=== PATIENT | male | born 1945 | race Caucasian/White ===

== ENCOUNTER 2018-11-11 02:30 | Inpatient (IN) | payer OTHER, MEDICARE ==
--- NOTE | 2018-11-11 02:35 | PDOC ---
Attending Attestation - Resident Resident Name: Ronal Padron - ED Attending Attestation I have performed the following: I have examined & evaluated the patient, The case was reviewed & discussed with the resident, I agree w/resident's findings & plan - HPI HPI: 11/11/18 03:07 73-year-old male with sudden onset of lower lip swelling getting worse despite home Benadryl. Patient denies known allergens or HARLEEN inhibitor use. - Physicial Exam PE: 11/11/18 03:09 Agree with resident's exam - Medical Decision Making 11/11/18 03:10 73-year-old male with anterior angioedema Call placed to on-call ENT for phone consultation and notification should the patient require a surgical airway Solu-Medrol, Benadryl and Pepcid initiated ICU consult for admission
[2018-11-11] MEDS ORDERED: FAMOTIDINE 20 MG/50 ML IVPB 20 MG/50 ML MG IVPB ONE (02:43)
[2018-11-11] MEDS ORDERED: methylPREDNISolone NA SUCC 125 MG/2 ML VIAL IVPB ONE (02:43)
[2018-11-11 02:50] VITALS: BMI 23.5
--- NOTE | 2018-11-11 02:51 | PDOC ---
History of Present Illness - General Chief Complaint: Allergic Reaction Stated Complaint: ALLERGIC REACTION Time Seen by Provider: 11/11/18 02:35 History Source: Patient Exam Limitations: No Limitations - History of Present Illness Initial Comments: 11/11/18 02:52 Patient is a 73M with no significant medical history here today complaining swelling to his lips that started just prior to coming in. Patient states that that he felt what he thought was a cold sore on his bottom lip, took a valtrex, and then the swelling got worse. Took 50mg of benadryl. No voice changes. No HARLEEN inhibitors. No new detergents, foods, trauma. No history of this happening before. Past History - Past Medical History Allergies/Adverse Reactions: Allergies Allergy/AdvReac Type Severity Reaction Status Date / Time No Known Allergies Allergy Verified 11/11/18 02:48 Home Medications: Ambulatory Orders Atorvastatin Ca [Lipitor] 10 mg PO DAILY 11/11/18 - Suicide/Smoking/Psychosocial Hx Smoking History: Never smoked Have you smoked in the past 12 months: No Information on smoking cessation initiated: No Hx Alcohol Use: No Drug/Substance Use Hx: No Review of Systems - Review of Systems Able to Perform ROS?: Yes Comments:: 11/11/18 03:13 GENERAL/CONSTITUTIONAL: No fever or chills. No weakness. HEAD, EYES, EARS, NOSE AND THROAT: No change in vision. No sore throat. CARDIOVASCULAR: No chest pain or shortness of breath RESPIRATORY: No cough, wheezing, or hemoptysis. GASTROINTESTINAL: No nausea, vomiting, diarrhea or constipation. GENITOURINARY: No dysuria, frequency, or change in urination. MUSCULOSKELETAL: No joint or muscle swelling or pain. No neck or back pain. SKIN: No rash NEUROLOGIC: No headache, vertigo, loss of consciousness, or change in strength/ sensation. ALLERGIC/IMMUNOLOGIC: No hives or skin allergy. *Physical Exam - Vital Signs Last Vital Signs Temp Pulse Resp BP Pulse Ox 97.6 F 93 H 20 157/71 99 11/11/18 02:35 11/11/18 02:35 11/11/18 02:35 11/11/18 02:35 11/11/18 02:35 - Physical Exam Comments: 11/11/18 03:14 GENERAL: Awake, alert, and fully oriented, in no acute distress HEAD: No signs of trauma, normocephalic, atraumatic EYES: PERRLA, EOMI, sclera anicteric, conjunctiva clear ENT: Auricles normal inspection, hearing grossly normal, nares patent, anterior angioedema to lower lip, clear posterior oropharynx, normal voice NECK: Normal ROM, supple, no lymphadenopathy, JVD, or masses LUNGS: No distress, speaks full sentences, clear to auscultation bilaterally HEART: Regular rate and rhythm, normal S1 and S2, no murmurs, rubs or gallops, peripheral pulses normal and equal bilaterally. ABDOMEN: Soft, nontender, normoactive bowel sounds. No guarding, no rebound. No masses EXTREMITIES: Normal inspection, Normal range of motion, no edema. No clubbing or cyanosis. NEUROLOGICAL: Cranial nerves II through XII grossly intact. Normal speech, normal gait, no focal sensorimotor deficits SKIN: Warm, Dry, normal turgor, no rashes or lesions noted. ED Treatment Course - LABORATORY CBC & Chemistry Diagram: 11/11/18 02:43 11/11/18 02:43 - RADIOLOGY Radiology Studies Ordered: Category Date Time Status CXRPORT [CHEST X-RAY PORTABLE*] [RAD] Stat Radiology 11/11/18 02:43 Ordered - Medications Given in the ED: ED Medications Discontinued Medications Generic Name Dose Route Start Last Admin Trade Name Freq PRN Reason Stop Dose Admin Methylprednisolone Sodium Succinate 125 mg 11/11/18 02:43 11/11/18 02:46 Solu-Medrol - IVPB 11/11/18 02:44 125 mg ONCE ONE Administration Medical Decision Making - Medical Decision Making 11/11/18 03:15 Patient is 73M here today with angioedema. Vitals normal and stable. Appears to be anterior. Given pepcid, steroids, benadryl at home. Dr Dobbs consulted, aware. Basic labs drawn. Will admit to ICU for monitoring airway. *DC/Admit/Observation/Transfer Diagnosis at time of Disposition: Angioedema - Discharge Dispostion Condition at time of disposition: Guarded Decision to Admit order: Yes - Referrals - Patient Instructions - Post Discharge Activity
[2018-11-11 03:03] LABS: HEMATOCRIT 46.5 % (35.4-49); HEMOGLOBIN 14.9 GM/dL (11.7-16.9); MCH 25.7 pg (25.7-33.7); MEAN CELL VOLUME 80.5 fl (80-96); PLATELET COUNT 178 K/MM3 (134-434); RBC 5.77 M/mm3 (4.00-5.60); RDW 15.1 % (11.9-15.9); WHITE BLOOD COUNT 7.1 K/mm3 (4.0-10.0)
[2018-11-11 03:20] LABS: INR 1.15 (0.83-1.09); PROTHROMBIN TIME (PATIENT) 13.6 SEC (9.7-13.0)
[2018-11-11 03:33] LABS: ALBUMIN 3.6 g/dl (3.4-5.0); ALK PHOS 64 U/L (45-117); ANION GAP 5 MMOL/L (8-16); BILIRUBIN,TOTAL 1.6 mg/dL (0.2-1); BLOOD UREA NITROGEN 16 mg/dL (7-18); CHLORIDE 107 mmol/L (98-107); CO2 29 mmol/L (21-32); CREATININE 0.8 mg/dL (0.55-1.3); GLUCOSE,RANDOM 108 mg/dL (74-106); POTASSIUM 4.1 mmol/L (3.5-5.1); SGOT/AST 18 U/L (15-37); SGPT/ALT 29 U/L (13-61); SODIUM 140 mmol/L (136-145); TOT PROT 6.9 g/dl (6.4-8.2)
--- NOTE | 2018-11-11 03:55 | CONSULT ---
Consultation: REQUESTING PROVIDER: CONSULT REQUEST: We have been asked to medically evaluate this patient for ( Angioedema---ICU admission). HISTORY OF PRESENT ILLNESS: Patient is a 73 year old male presented to the ED with the chief complaint of " swelling of lips". As per the patient, he was apparently well until 1 am this morning, then he noticed lip swelling and perioral numbness. He initially thought it was a cold sore so he took PO Valtrex and PO Benadryl. He noticed the swelling of lips didn't get better and came in to the ED for further evaluation. He has never had these symptoms before. Patient reports for dinner he ate pizza , had a cocktail (bourbon with some herbs) and an ice cream. Didn't take any new medications, no new trial of deodrants, cologne , no new change in detergents, has never been on HARLEEN inhibitors. Denies drooling of saliva, dysphagia, odynophagia, shortness of breath, wheezing , chest pain, palpitations, abdominal pain, nausea, vomiting, headache or any neurolgical deficits. Bowel habit normal- last BM yesterday morning. Bladder habit normal. Sleep/ Appetite normal. On arrival to the ED, he was afebrile, hemodynamically stable. He was given IV Solumedrol 125 mg and IV Famotidine. Patient reports his perioral numbness has resolved, swelling of the lips has improved. Upon assessment, patient still has swelling of the lips, uvula is at midline but swollen. Hence will need ICU admission for further monitoring of airway. PAST MEDICAL HISTORY: Hyperlipidemia ALLERGIES: NKDA PAST SURGICAL HISTORY: Lipoma excision from the left upper ext. SOCIAL HISTORY: Smoking- Denies Alcohol- Social, last drink yesterday night. 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 REVIEW OF SYSTEMS: CONSTITUTIONAL: Present: Swelling of the lips. Absent: fever, chills, diaphoresis, generalized weakness, malaise, loss of appetite, weight change HEENT: Absent: rhinorrhea, nasal congestion, throat pain, throat swelling, difficulty swallowing, mouth swelling, ear pain, eye pain, visual changes CARDIOVASCULAR: Absent: chest pain, syncope, palpitations, irregular heart rate, lightheadedness , peripheral edema RESPIRATORY: Absent: cough, shortness of breath, dyspnea with exertion, orthopnea, wheezing, stridor, hemoptysis GASTROINTESTINAL: Absent: abdominal pain, abdominal distension, nausea, vomiting, diarrhea, constipation, melena, hematochezia GENITOURINARY: Absent: dysuria, frequency, urgency, hesitancy, hematuria, flank pain, genital pain MUSCULOSKELETAL: Absent: myalgia, arthralgia, joint swelling, back pain, neck pain SKIN: Absent: rash, itching, pallor HEMATOLOGIC/IMMUNOLOGIC: Absent: easy bleeding, easy bruising, lymphadenopathy, frequent infections ENDOCRINE: Absent: unexplained weight gain, unexplained weight loss, heat intolerance, cold intolerance NEUROLOGIC: Absent: headache, focal weakness or paresthesias, dizziness, unsteady gait, seizure, mental status changes, bladder or bowel incontinence PSYCHIATRIC: Absent: anxiety, depression, suicidal or homicidal ideation, hallucinations. PHYSICAL EXAMINATION Vital Signs - 24 hr 11/11/18 11/11/18 11/11/18 02:35 02:52 03:17 Temperature 97.6 F Pulse Rate 93 H Pulse Rate [ 78 Left Radial] Respiratory 20 20 Rate Blood Pressure 157/71 O2 Sat by Pulse 99 99 98 Oximetry (%) GENERAL: Middle aged male, lying comfortably in bed, Awake, alert, and fully oriented, in no acute distress, can speak a full sentence. EYES: EOM intact, no pallor or icterus. EARS, NOSE, THROAT: Ears normal, nares patent, oropharynx clear, uvula midline but swollen without any airway obstruction. Swelling of the lips +, slightly swollen tongue. Moist mucous membranes. NECK: Supple, no JVD. LUNGS: B/L lungs clear, no added sounds. HEART: Regular rate and rhythm, normal S1 and S2 with soft systolic murmur. ABDOMEN: Soft, non tender, no organomegaly, BS +. UPPER EXTREMITIES: No peripheral edema. LOWER EXTREMITIES: No peripheral edema. NEUROLOGICAL: No facial droop. Power 5/5 in all extremities. Sensation intact. Cranial nerves II-XII intact. Normal speech. Gait not observed. PSYCHIATRIC: Cooperative. Good eye contact. Appropriate mood and affect. SKIN: No rashes or lesions. Laboratory Results - last 24 hr 11/11/18 11/11/18 11/11/18 02:43 02:43 02:43 WBC 7.1 RBC 5.77 H Hgb 14.9 Hct 46.5 MCV 80.5 MCH 25.7 MCHC 32.0 RDW 15.1 Plt Count 178 MPV 9.0 PT with INR 13.60 H INR 1.15 H Sodium 140 Potassium 4.1 Chloride 107 Carbon Dioxide 29 Anion Gap 5 L BUN 16 Creatinine 0.8 Creat Clearance w eGFR 94.76 Random Glucose 108 H Calcium 9.0 Total Bilirubin 1.6 H AST 18 ALT 29 Alkaline Phosphatase 64 Total Protein 6.9 Albumin 3.6 ASSESSMENT/PLAN: Patient is a 73 year old male with past medical history of Hyperlipidemia presented to the ED with the chief complaint of " swelling of lips". # Angioedema- likely from herbs mixed in the cocktail he took last night. Improved but still has swelling of the lips with swollen uvual. Admit to ICU to monitor airway Continue IV Benadryl 12.5 mg Q6H Continue IV Pepsid 20 mg BID Continue IV Solumedrol 60 mg BID. # Hyperlipidemia Continue Lipitor 10 mg PO daily # FEN Not on IV fluids Electrolytes WNL NPO for now. Once swelling improves, trail of sips of water, if he tolerates will advance diet. # Prophylaxis For DVT: Early ambulation For GI: IV Famotidine # Code Status: Full Code Case discussed with ED resident. Kriss Barragan, PGY-3. Dispo: We will continue to follow the patient. Thank you for this consultative opportunity.
[2018-11-11] MEDS ORDERED: SODIUM CHLORIDE 1,000 ML IV SCH (05:15)
--- NOTE | 2018-11-11 05:35 | PN ---
Teaching Attending Note Name of Resident: Tesfaye Tan ATTENDING PHYSICIAN STATEMENT I saw and evaluated the patient. I reviewed the resident's note and discussed the case with the resident. I agree with the resident's findings and plan as documented. 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 By 1 am this morning he noticed lip swelling and perioral numbness. He initially thought it was a cold sore so he took PO Valtrex and PO Benadryl, but the swelling got worse. He has never had these symptoms before and is not on an ACEI or ARB. Has been on Lipitor for 10 years. Patient reports for dinner he ate pizza (ordered from a new restuarant), had a cocktail (bourbon with some herbs) and an ice cream. His ate the same Pizza and is okay. Didn't take any new medications, no new trial of deodrants, cologne, no new change in detergents, has never been on HARLEEN inhibitors. No illicit drug use. Denies drooling of saliva, dysphagia, odynophagia, shortness of breath, wheezing , chest pain, palpitations, abdominal pain, nausea, vomiting, headache or any neurolgical deficits. No change in bowel or bladder habit. On arrival he was given IV Solumedrol 125 mg and IV Famotidine. Patient reports his perioral numbness has resolved, swelling of the lips has improved. OBJECTIVE: Alert Vital Signs Period Temp Pulse Resp BP Sys/[place] Pulse Ox Last 24 Hr 97.6 F 67-93 20-20 108-157/69-71 95-99 HEENT: No Jaundice, eye redness or discharge, swollen and erythematous lower lip ; uvula is swollen but midline; no stridor; PERRLA, EOMI. Normocephalic, atraumatic. External ears are normal and hearing is grossly intact. No nasal discharge. Neck: Supple, nontender. No palpable adenopathy or thyromegaly. No JVD Chest: Good effort. Clear to auscultation and percussion. Heart: Regular. No S3, rub or murmur Abdomen: Not distended, soft, nontender and no HSM. No rebound or guarding. Normal bowel sounds. Ext: Peripheral pulses intact. No leg edema. Skin: Warm and dry. No petechiae, rash or ecchymosis. Neuro: Alert. Oriented x3. CN 2-12 grossly intact. Sensation grossly intact in all four extremities and DTR are symmetric. Psych: Appropriate mood and affect. Good insight. Current Medications Generic Name Dose Route Start Last Admin Trade Name Frehansa PRN Reason Stop Dose Admin Chlorhexidine Gluconate 1 applic 11/11/18 22:00 Hibiclens For Decolonization - TP HS ТАТЬЯНА Diphenhydramine HCl 12.5 mg 11/11/18 05:11 Benadryl Injection - IVPUSH Q6H-IV ТАТЬЯНА Enoxaparin Sodium 40 mg 11/11/18 10:00 Lovenox - SQ DAILY ТАТЬЯНА Famotidine/Sodium Chloride 20 mg in 50 mls @ 100 mls/hr 11/11/18 10:00 Pepcid 20 Mg Premixed Ivpb - IVPB BID ТАТЬЯНА Sodium Chloride 1,000 mls @ 42 mls/hr 11/11/18 05:15 Normal Saline - IV ASDIR ТАТЬЯНА Methylprednisolone Sodium Succinate 60 mg 11/11/18 10:00 Solu-Medrol - IVPUSH BID ТАТЬЯНА Mupirocin 1 applic 11/11/18 10:00 Bactroban Ointment (For Decolonization) - NS 11/16/18 09:59 BID ТАТЬЯНА Abnormal Lab Results 11/11/18 11/11/18 11/11/18 02:43 02:43 02:43 RBC 5.77 H PT with INR 13.60 H INR 1.15 H Anion Gap 5 L Random Glucose 108 H Total Bilirubin 1.6 H ASSESSMENT AND PLAN: 1. Angioedema - Etiology unclear, but a component/condiment in the Pizza that he ordered from the new restaurant is the likely culprit. Will monitor him in the ICU, continue solumedrol, IV Pepcid and benadryl. Will have the tracheostomy kit by his bedside. data warehouse consultant has been contacted and put on alert by the ER staff. No acute abnormality on EKG or CXR. Elevated bilirubin is unexplained. Will get RUQ sonogram and HbA1c. 2. DVT prophylaxis - Lovenox 40 mg SQ q 24 hours. 3. Advance directives - Full code
--- NOTE | 2018-11-11 05:36 | HP ---
CHIEF COMPLAINT: lower lip swilling PCP: Dr. 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 denies any HTN meds use or any previous history of allergy he had Pizza with his who did not develop any symptoms , pt took 2x benadryl and Valtrex at home . in ED was giving Solumedrol , Benadryl and pepcid and the swilling is improving. pt denies any fever, chills, N/V/D/C, denies any difficulty breathing , difficulty swallowing denies any headache , blurry vision , dizziness , sore throat , chest pain , sob , drop in BP, denies any abdominal pain or any urinary symptoms , denies any swelling in hs legs. ER course was notable for: (1) cbc, cmp (2)ENT consult (3)Solumedrol, benadryl Recent Travel: PAST MEDICAL HISTORY: HLD PAST SURGICAL HISTORY: Lipmoa left arm , circumcision @ 60 Social History: Smoking:denies Alcohol:socially Drugs: denies Family History: Breat cancer Mother , heart disease , HTN Allergies No Known Allergies Allergy (Verified 11/11/18 02:48) HOME MEDICATIONS: Home Medications Medication Instructions Recorded Atorvastatin Ca [Lipitor] 20 mg PO DAILY 11/11/18 REVIEW OF SYSTEMS CONSTITUTIONAL: Absent: fever, chills, diaphoresis, generalized weakness, malaise, loss of appetite, weight change HEENT: Absent: rhinorrhea, nasal congestion, throat pain, throat swelling, difficulty swallowing, mouth swelling, ear pain, eye pain, visual changes CARDIOVASCULAR: Absent: chest pain, syncope, palpitations, irregular heart rate, lightheadedness , peripheral edema RESPIRATORY: Absent: cough, shortness of breath, dyspnea with exertion, orthopnea, wheezing, stridor, hemoptysis GASTROINTESTINAL: Absent: abdominal pain, abdominal distension, nausea, vomiting, diarrhea, constipation, melena, hematochezia GENITOURINARY: Absent: dysuria, frequency, urgency, hesitancy, hematuria, flank pain, genital pain MUSCULOSKELETAL: Absent: myalgia, arthralgia, joint swelling, back pain, neck pain SKIN: Absent: rash, itching, pallor HEMATOLOGIC/IMMUNOLOGIC: Absent: easy bleeding, easy bruising, lymphadenopathy, frequent infections ENDOCRINE: Absent: unexplained weight gain, unexplained weight loss, heat intolerance, cold intolerance NEUROLOGIC: Absent: headache, focal weakness or paresthesias, dizziness, unsteady gait, seizure, mental status changes, bladder or bowel incontinence PSYCHIATRIC: Absent: anxiety, depression, suicidal or homicidal ideation, hallucinations. PHYSICAL EXAMINATION Vital Signs - 24 hr 11/11/18 11/11/18 11/11/18 02:35 02:52 03:17 Temperature 97.6 F Pulse Rate 93 H Pulse Rate [ 78 Left Radial] Respiratory 20 20 Rate Blood Pressure 157/71 Blood Pressure [Left Arm] O2 Sat by Pulse 99 99 98 Oximetry (%) 11/11/18 04:33 Temperature Pulse Rate Pulse Rate [ 67 Left Radial] Respiratory 20 Rate Blood Pressure Blood Pressure 108/69 [Left Arm] O2 Sat by Pulse 95 Oximetry (%) GENERAL: AAOx3 in NAD HEAD: NC/AT, EYES: EOMI, Conjunctiva clear, sclera anicteric ENT: moist mucous membrane , lower lip swollen NECK: Supple, no JVD LUNGS: CTA B/L, no crackles no wheezing no accessory muscle use. HEART: RRR, NSR, normal s1, s2, no M/R/G ABDOMEN: Soft, ND, NT, +BS 4 Q, no CVA Tenderness LOWER EXTREMITIES: no edema, +2DP pulse, NEUROLOGICAL: No focal deficit. Normal speech. gait not observed. PSYCHIATRIC: Cooperative. Good eye contact. Appropriate mood and affect. SKIN: Warm, dry, Laboratory Results - last 24 hr 11/11/18 11/11/18 11/11/18 02:43 02:43 02:43 WBC 7.1 RBC 5.77 H Hgb 14.9 Hct 46.5 MCV 80.5 MCH 25.7 MCHC 32.0 RDW 15.1 Plt Count 178 MPV 9.0 PT with INR 13.60 H INR 1.15 H Sodium 140 Potassium 4.1 Chloride 107 Carbon Dioxide 29 Anion Gap 5 L BUN 16 Creatinine 0.8 Creat Clearance w eGFR 94.76 Random Glucose 108 H Calcium 9.0 Total Bilirubin 1.6 H AST 18 ALT 29 Alkaline Phosphatase 64 Total Protein 6.9 Albumin 3.6 Blood Type Antibody Screen 11/11/18 02:43 WBC RBC Hgb Hct MCV MCH MCHC RDW Plt Count MPV PT with INR INR Sodium Potassium Chloride Carbon Dioxide Anion Gap BUN Creatinine Creat Clearance w eGFR Random Glucose Calcium Total Bilirubin AST ALT Alkaline Phosphatase Total Protein Albumin Blood Type A POSITIVE Antibody Screen Negative CBC, BMP 11/11/18 02:43 11/11/18 02:43 ASSESSMENT/PLAN: 73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 to ED @ 1 am due to swelling in his lower lip, admitted to ICU for angioedema and for airway protection # Angioedema * only lower lip no palate no upper lip swelling * not on any ACEI , ate Pitza last night with his * Steroids * Benadril * Pepcid * airway precautions * Monitor in ICU * ENT consult By Ed # HLD * resume home meds , Lipitor 10 HS # FEN * NS @ 42 CC/hr * Monitor lytes * NPO for now # Proph * dvts: SCDS, Lovenox 40 SQ daily * GI: Pepcid # Full code # Admit to ICU Visit type - Emergency Visit Emergency Visit: Yes ED Registration Date: 11/11/18 Care time: The patient presented to the Emergency Department on the above date and was hospitalized for further evaluation of their emergent condition. - New Patient This patient is new to me today: Yes Date on this admission: 11/11/18 - Critical Care Critical Care patient: Yes Total Critical Care Time (in minutes): 45 Critical Care Statement: The care of this patient involved high complexity decision making to prevent further life threatening deterioration of the patient 's condition and/or to evaluate & treat vital organ system(s) failure or risk of failure.
[2018-11-11 06:02] VITALS: TEMP 98.4
--- NOTE | 2018-11-11 07:56 | PN ---
Physical Exam: SUBJECTIVE: Patient seen and examined, reported improvement of symptoms. Pt denied nausea, vomiting, shortness of breath, wheezing, chest tightness, abdominal pain, chest pain, or any other complaints. [facility] documentation provided further PMH: diverticulosis, gilberts syndrome, HTN, colon polyp, hemorrhoids, thrombocytopenia, vitamin D deficiency. OBJECTIVE: Vital Signs Period Temp Pulse Resp BP Sys/[place] Pulse Ox Last 24 Hr 97.6 F-98.4 F 64-93 15-20 108-157/69-79 95-99 GENERAL: The patient is awake, alert, and fully oriented, in no acute distress. HEAD: Normal with no signs of trauma. EYES: PERRL, extraocular movements intact, sclera anicteric, conjunctiva clear. No ptosis. ENT: Ears normal, nares patent, oropharynx clear without exudates, moist mucous membranes. minimal lip and tongue swelling. unable to visualize uvula, Mallampati 4. NECK: Trachea midline, full range of motion, supple. LUNGS: Breath sounds equal, clear to auscultation bilaterally, no wheezes, no crackles, no accessory muscle use. HEART: Regular rate and rhythm, S1, S2 without murmur, rub or gallop. ABDOMEN: Soft, nontender, nondistended, normoactive bowel sounds, no guarding, no rebound, no hepatosplenomegaly, no masses. EXTREMITIES: 2+ pulses, warm, well-perfused, no edema. NEUROLOGICAL: Cranial nerves II through XII grossly intact. Normal speech, gait not observed. PSYCH: Normal mood, normal affect. SKIN: Warm, dry, normal turgor, no rashes or lesions noted Laboratory Results - last 24 hr 11/11/18 11/11/18 11/11/18 02:43 02:43 02:43 WBC 7.1 RBC 5.77 H Hgb 14.9 Hct 46.5 MCV 80.5 MCH 25.7 MCHC 32.0 RDW 15.1 Plt Count 178 MPV 9.0 PT with INR 13.60 H INR 1.15 H Sodium 140 Potassium 4.1 Chloride 107 Carbon Dioxide 29 Anion Gap 5 L BUN 16 Creatinine 0.8 Creat Clearance w eGFR 94.76 Random Glucose 108 H Calcium 9.0 Total Bilirubin 1.6 H AST 18 ALT 29 Alkaline Phosphatase 64 Total Protein 6.9 Albumin 3.6 Blood Type Antibody Screen 11/11/18 02:43 WBC RBC Hgb Hct MCV MCH MCHC RDW Plt Count MPV PT with INR INR Sodium Potassium Chloride Carbon Dioxide Anion Gap BUN Creatinine Creat Clearance w eGFR Random Glucose Calcium Total Bilirubin AST ALT Alkaline Phosphatase Total Protein Albumin Blood Type A POSITIVE Antibody Screen Negative Active Medications Generic Name Dose Route Start Last Admin Trade Name Freq PRN Reason Stop Dose Admin Chlorhexidine Gluconate 1 applic 11/11/18 22:00 Hibiclens For Decolonization - TP HS ТАТЬЯНА Diphenhydramine HCl 12.5 mg 11/11/18 05:11 Benadryl Injection - IVPUSH Q6H-IV ТАТЬЯНА Enoxaparin Sodium 40 mg 11/11/18 10:00 Lovenox - SQ DAILY ТАТЬЯНА Famotidine/Sodium Chloride 20 mg in 50 mls @ 100 mls/hr 11/11/18 10:00 Pepcid 20 Mg Premixed Ivpb - IVPB BID ТАТЬЯНА Sodium Chloride 1,000 mls @ 42 mls/hr 11/11/18 05:15 Normal Saline - IV ASDIR ТАТЬЯНА Methylprednisolone Sodium Succinate 60 mg 11/11/18 10:00 Solu-Medrol - IVPUSH BID ТАТЬЯНА Mupirocin 1 applic 11/11/18 10:00 Bactroban Ointment (For Decolonization) - NS 11/16/18 09:59 BID ТАТЬЯНА ASSESSMENT/PLAN: 73 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 # Angioedema * Swelling improving, no airway compromise * Solumedrol 60 mg IV BID * Benadryl 12.5 mg IV Q6H * Pepcid 20 mg IV BID * ENT consult by ED * DC home with oral prednisone and antihistamines per ENT # HLD * resume Lipitor 10 HS # FEN * No IVF * Regular diet, cleared by ENT # Proph * DVT: SCDS, Lovenox 40 SQ daily * GI: Pepcid # Full code DISPO DC home via primary team Visit type - Emergency Visit Emergency Visit: Yes ED Registration Date: 11/11/18 Care time: The patient presented to the Emergency Department on the above date and was hospitalized for further evaluation of their emergent condition. - New Patient This patient is new to me today: Yes Date on this admission: 11/11/18 - Critical Care Critical Care patient: Yes Total Critical Care Time (in minutes): 35 Critical Care Statement: The care of this patient involved high complexity decision making to prevent further life threatening deterioration of the patient 's condition and/or to evaluate & treat vital organ system(s) failure or risk of failure. - Discharge Referral Referred to [facility] No
[2018-11-11 08:33] LABS: BASO % 0.4 % (0-2.0); EOS % 0.1 % (0-4.5); HEMATOCRIT 50.1 % (35.4-49); LYMPH % 3.7 % (8-40); MCH 25.5 pg (25.7-33.7); MCHC 31.9 g/dl (32.0-35.9); MEAN CELL VOLUME 79.9 fl (80-96); MEAN PLT VOLUME 8.9 fl (7.5-11.1); NEUT % 94.8 % (42.8-82.8); PLATELET COUNT 178 K/MM3 (134-434); RBC 6.27 M/mm3 (4.00-5.60); RDW 15.1 % (11.9-15.9); WHITE BLOOD COUNT 10.5 K/mm3 (4.0-10.0)
[2018-11-11 09:02] VITALS: PULSE 85
[2018-11-11] MEDS ORDERED: FAMOTIDINE 20 MG/50 ML IVPB 20 MG/50 ML MG IVPB SCH (10:00)
[2018-11-11] MEDS ORDERED: MUPIROCIN 2% TOPICAL OINTMENT FOR DECOLONIZATION NS SCH (10:00)
[2018-11-11] MEDS ORDERED: ENOXAPARIN NA (PORCINE) 40 MG/0.4 ML DISP.SYRIN SQ SCH (10:00)
[2018-11-11] MEDS ORDERED: methylPREDNISolone NA SUCC 125 MG/2 ML VIAL IVPUSH SCH (10:00)
--- NOTE | 2018-11-11 10:01 | CON.ENT ---
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 Early this morning ~1 AM woke with lower lip irritation. rapidly increased to signifciant swelling and pt presented to [facility] Emergency Department for further evaluation and management. When pt noted onset of swelling applied Valtrex then Benadryl po, once in ED had IV solumedrol and famotidine. denied any significant voice change , swallowing problem or dyspnea. Significant improvement in the degree of lip swelling since treatment/admission. NO prior hx of lip or facial swelling, no significant allergic history, no recent oral trauma or dental treatment, no unusual food ingestions. that evening ate pizza out at a new restaurant but felt well during and after the meal. no abdominal pain. - History Source History Provided By: Patient, Medical Record Limitations to Obtaining History: No Limitations - Alcohol/Substance Use Hx Alcohol Use: No - Smoking History Smoking history: Never smoked Have you smoked in the past 12 months: No Home Medications - Allergies Allergies/Adverse Reactions: Allergies Allergy/AdvReac Type Severity Reaction Status Date / Time No Known Allergies Allergy Verified 11/11/18 02:48 - Home Medications Home Medications: Ambulatory Orders Atorvastatin Ca [Lipitor] 10 mg PO DAILY 11/11/18 Cetirizine HCl [Zyrtec -] 10 mg PO DAILY #7 tablet 11/11/18 Prednisone 10 mg PO ASDIR 4 Days #10 tablet 11/11/18 Physical Exam-ENT Vital Signs: Vital Signs Temperature 98.4 F 11/11/18 05:55 Pulse Rate 85 11/11/18 08:00 Respiratory Rate 16 11/11/18 08:00 Blood Pressure 120/74 11/11/18 08:00 O2 Sat by Pulse Oximetry (%) 96 11/11/18 05:55 Constitutional: Yes: Well Nourished, No Distress, Calm Head: Yes: WNL Face: Yes: WNL Eyes: Yes: WNL Nose: Yes: WNL Nasal Passage: Yes: WNL Oral/Pharynx: Yes: Other (mild swelling lower lip, diffuse, no lesions; teeth, soft palate, hard palate WNL, tongue normal, no swelling fully mobile, floor of mouth no swelling, uvula minmially swollen, NO obstuction. voice clear and strong, no stridor or repsiratory distress) Outer Ear: Yes: WNL Ear Canal: Yes: WNL Tympanic Membrane: Yes: WNL Neck: Yes: WNL Imaging - Results Cat Scan: Report Reviewed Problem List - Problems (1) Angioedema Assessment/Plan: sudden onset 1 AM this morning no obvious trigger significant clinical improvement with oral Benadryl, IV Solumedrol and famotidine lip swelling minimal NO oropharyngeal swelling or obstruction Recommend: continue observation, OK to discharge home on oral antihistamines, oral prednisone outpatient Allergy evaluation Thank you for consultation, Zain Dobbs MD FACS Code(s): T78.3XXA - ANGIONEUROTIC EDEMA, INITIAL ENCOUNTER Qualifiers: Encounter type: initial encounter Qualified Code(s): T78.3XXA - Angioneurotic edema, initial encounter
--- NOTE | 2018-11-11 10:43 | PN ---
Teaching Attending Note Name of Resident: Stacy Younger ATTENDING PHYSICIAN STATEMENT I saw and evaluated the patient. I reviewed the resident's note and discussed the case with the resident. I agree with the resident's findings and plan as documented. SUBJECTIVE: Patient seen and examined. Overall feels better. Seen by ENT this AM. Tolerated PO intake without an issue. No pooling of secretions. Intake & Output 11/08/18 11/09/18 11/10/18 11/11/18 23:59 23:59 23:59 23:59 Weight 150 lb Last Vital Signs Temp Pulse Resp BP Pulse Ox 98.4 F 85 16 120/74 96 11/11/18 05:55 11/11/18 08:00 11/11/18 08:00 11/11/18 08:00 11/11/18 05:55 Active Medications Chlorhexidine Gluconate (Hibiclens For Decolonization -) 1 applic TP HS [facility] Diphenhydramine HCl (Benadryl Injection -) 12.5 mg IVPUSH Q6H-IV [facility] Last Admin: 11/11/18 10:08 Dose: 12.5 mg Enoxaparin Sodium (Lovenox -) 40 mg SQ DAILY [facility] Last Admin: 11/11/18 10:05 Dose: 40 mg Famotidine/Sodium Chloride (Pepcid 20 Mg Premixed Ivpb -) 20 mg in 50 mls @ 100 mls/hr IVPB BID [facility] Last Admin: 11/11/18 10:04 Dose: 100 mls/hr Methylprednisolone Sodium Succinate (Solu-Medrol -) 60 mg IVPUSH BID [facility] Last Admin: 11/11/18 10:03 Dose: 60 mg Mupirocin (Bactroban Ointment (For Decolonization) -) 1 applic NS BID [facility] Stop: 11/16/18 09:59 GENERAL: The patient is awake, alert, and fully oriented, in no acute distress. HEAD: Normal with no signs of trauma. EYES: PERRL, extraocular movements intact, sclera anicteric, conjunctiva clear. No ptosis. ENT: minimal lip and tongue swelling. uvula slightly enlarged. NECK: Trachea midline, full range of motion, supple. LUNGS: Breath sounds equal, clear to auscultation bilaterally, no wheezes, no crackles, no accessory muscle use. HEART: Regular rate and rhythm, S1, S2 without murmur, rub or gallop. ABDOMEN: Soft, nontender, nondistended, normoactive bowel sounds, no guarding, no rebound, no hepatosplenomegaly, no masses. EXTREMITIES: 2+ pulses, warm, well-perfused, no edema. NEUROLOGICAL: Non-focal PSYCH: Normal mood, normal affect. SKIN: Warm, dry, normal turgor, no rashes or lesions noted Laboratory Results - last 24 hr 11/11/18 11/11/18 11/11/18 02:43 02:43 02:43 WBC 7.1 RBC 5.77 H Hgb 14.9 Hct 46.5 MCV 80.5 MCH 25.7 MCHC 32.0 RDW 15.1 Plt Count 178 MPV 9.0 PT with INR 13.60 H INR 1.15 H Sodium 140 Potassium 4.1 Chloride 107 Carbon Dioxide 29 Anion Gap 5 L BUN 16 Creatinine 0.8 Creat Clearance w eGFR 94.76 Random Glucose 108 H Calcium 9.0 Total Bilirubin 1.6 H AST 18 ALT 29 Alkaline Phosphatase 64 Total Protein 6.9 Albumin 3.6 Blood Type Antibody Screen 11/11/18 02:43 WBC RBC Hgb Hct MCV MCH MCHC RDW Plt Count MPV PT with INR INR Sodium Potassium Chloride Carbon Dioxide Anion Gap BUN Creatinine Creat Clearance w eGFR Random Glucose Calcium Total Bilirubin AST ALT Alkaline Phosphatase Total Protein Albumin Blood Type A POSITIVE Antibody Screen Negative ASSESSMENT/PLAN: Resolving Angioedema: Etiology not identified HPL Seen by ENT and cleared for D/C home with antihistamine and Prednisone Dr Hoff
[2018-11-11 11:21] LABS: ANISOCYTOSIS 1+; MACROCYTOSIS 0; OVALOCYTE 1+; PLATELET ESTIMATE NORMAL
--- NOTE | 2018-11-11 11:51 | EKG ---
Test Reason : Blood Pressure : / mmHG Vent. Rate : 063 BPM Atrial Rate : 063 BPM P-R Int : 164 ms QRS Dur : 100 ms QT Int : 384 ms P-R-T Axes : 031 022 062 degrees QTc Int : 392 ms NORMAL SINUS RHYTHM NONSPECIFIC ST ABNORMALITY ABNORMAL ECG NO PREVIOUS ECGS AVAILABLE Confirmed by LAVERNE STERLING MD ([id number]) on 11/11/2018 11:51:22 AM Referred By: Confirmed By:LAVERNE STERLING MD
--- NOTE | 2018-11-11 12:34 | PN ---
Teaching Attending Note Name of Resident: Radha Comer ATTENDING PHYSICIAN STATEMENT I saw and evaluated the patient. I reviewed the resident's note and discussed the case with the resident. I agree with the resident's findings and plan as documented with exceptions below. SUBJECTIVE: patient seen and examined. swelling markedly improved, no dyspnea or new concerns. OBJECTIVE: Vital Signs Period Temp Pulse Resp BP Sys/[place] Pulse Ox Last 24 Hr 97.6 F-98.4 F 64-93 15-20 108-157/69-79 95-99 Intake & Output 11/08/18 11/09/18 11/10/18 11/11/18 23:59 23:59 23:59 23:59 Weight 150 lb General: sitting in bed in no acute distress HEENT: lower lip swelling (improved from photograph from yesterday), no tongue or palatal swelling noted Chest: no stridor, no rales or wheezing Abdomen:soft, NT Extremities: no edema Home Medications Medication Instructions Recorded Atorvastatin Ca [Lipitor] 10 mg PO DAILY 11/11/18 Cetirizine HCl [Zyrtec -] 10 mg PO DAILY #7 tablet 11/11/18 Prednisone 10 mg PO ASDIR 4 Days #10 tablet 11/11/18 Laboratory Results - last 24 hr 11/11/18 11/11/18 11/11/18 02:43 02:43 02:43 WBC 7.1 RBC 5.77 H Hgb 14.9 Hct 46.5 MCV 80.5 MCH 25.7 MCHC 32.0 RDW 15.1 Plt Count 178 MPV 9.0 Absolute Neuts (auto) Neutrophils % Neutrophils % (Manual) Band Neutrophils % Lymphocytes % Lymphocytes % (Manual) Monocytes % Monocytes % (Manual) Eosinophils % Eosinophils % (Manual) Basophils % Basophils % (Manual) Myelocytes % (Man) Promyelocytes % (Man) Blast Cells % (Manual) Nucleated RBC % Metamyelocytes Hypochromia Platelet Estimate Polychromasia Poikilocytosis Anisocytosis Microcytosis Macrocytosis Ovalocytes ESR PT with INR 13.60 H INR 1.15 H Sodium 140 Potassium 4.1 Chloride 107 Carbon Dioxide 29 Anion Gap 5 L BUN 16 Creatinine 0.8 Creat Clearance w eGFR 94.76 Random Glucose 108 H Calcium 9.0 Total Bilirubin 1.6 H AST 18 ALT 29 Alkaline Phosphatase 64 C-Reactive Protein Total Protein 6.9 Albumin 3.6 Blood Type Antibody Screen 11/11/18 11/11/18 11/11/18 02:43 08:15 08:15 WBC RBC Hgb Hct MCV MCH MCHC RDW Plt Count MPV Absolute Neuts (auto) Neutrophils % Neutrophils % (Manual) Band Neutrophils % Lymphocytes % Lymphocytes % (Manual) Monocytes % Monocytes % (Manual) Eosinophils % Eosinophils % (Manual) Basophils % Basophils % (Manual) Myelocytes % (Man) Promyelocytes % (Man) Blast Cells % (Manual) Nucleated RBC % Metamyelocytes Hypochromia Platelet Estimate Polychromasia Poikilocytosis Anisocytosis Microcytosis Macrocytosis Ovalocytes ESR PT with INR INR Sodium Potassium Chloride Carbon Dioxide Anion Gap BUN Creatinine Creat Clearance w eGFR Random Glucose Calcium Total Bilirubin AST ALT Alkaline Phosphatase C-Reactive Protein < 0.3 Total Protein Albumin Blood Type A POSITIVE A POSITIVE Antibody Screen Negative 11/11/18 11/11/18 08:15 08:15 WBC 10.5 H RBC 6.27 H Hgb 16.0 Hct 50.1 H MCV 79.9 L MCH 25.5 L MCHC 31.9 L RDW 15.1 Plt Count 178 MPV 8.9 Absolute Neuts (auto) 9.9 H Neutrophils % 94.8 H Neutrophils % (Manual) 90.8 H Band Neutrophils % 0.0 Lymphocytes % 3.7 L Lymphocytes % (Manual) 5.1 L Monocytes % 1.0 L Monocytes % (Manual) 3 L Eosinophils % 0.1 Eosinophils % (Manual) 0.0 Basophils % 0.4 Basophils % (Manual) 0.0 Myelocytes % (Man) 0 Promyelocytes % (Man) 0 Blast Cells % (Manual) 0 Nucleated RBC % 0 Metamyelocytes 0 Hypochromia 0 Platelet Estimate Normal Polychromasia 0 Poikilocytosis 1+ Anisocytosis 1+ Microcytosis 1+ Macrocytosis 0 Ovalocytes 1+ ESR 3 PT with INR INR Sodium Potassium Chloride Carbon Dioxide Anion Gap BUN Creatinine Creat Clearance w eGFR Random Glucose Calcium Total Bilirubin AST ALT Alkaline Phosphatase C-Reactive Protein Total Protein Albumin Blood Type Antibody Screen ASSESSMENT AND PLAN: 73 yom, 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 ENT input noted. D/c on short prednisone taper and zyrtec. Outpatient Healthcare Corporate Account Director follow up. discussed with ICU team D/c home today. Total critical care time spent 32 min.
[2018-11-11 13:33] VITALS: BP 120/80
--- NOTE | 2018-11-11 15:51 | DS ---
Physical Exam: SUBJECTIVE: Patient seen and examined; less lip swelling; ; swallowing; eating; no complaints; OBJECTIVE: Vital Signs Period Temp Pulse Resp BP Sys/[place] Pulse Ox Last 24 Hr 97.6 F-98.4 F 64-93 15-20 108-157/69-80 95-99 PHYSICAL EXAM GENERAL: The patient is awake, alert, and fully oriented, in no acute distress.bottom lip swollen; less that yesterday; (he showed me a picture) THROAT: oropharynx clear; no swelling or erythema NECK: Trachea midline, full range of motion, supple. LUNGS: Breath sounds equal, clear to auscultation bilaterally, no wheezes, no crackles, no accessory muscle use. HEART: Regular rate and rhythm, S1, S2 without murmur, rub or gallop. ABDOMEN: Soft, nontender, nondistended, normoactive bowel sounds, no guarding, no rebound, no hepatosplenomegaly, no masses. EXTREMITIES: 2+ pulses, warm, well-perfused, no edema. NEUROLOGICAL: Cranial nerves II through XII grossly intact. Normal speech, gait not observed. PSYCH: Normal mood, normal affect. SKIN: Warm, dry, normal turgor, no rashes or lesions noted. LABS Laboratory Results - last 24 hr 11/11/18 11/11/18 11/11/18 02:43 02:43 02:43 WBC 7.1 RBC 5.77 H Hgb 14.9 Hct 46.5 MCV 80.5 MCH 25.7 MCHC 32.0 RDW 15.1 Plt Count 178 MPV 9.0 Absolute Neuts (auto) Neutrophils % Neutrophils % (Manual) Band Neutrophils % Lymphocytes % Lymphocytes % (Manual) Monocytes % Monocytes % (Manual) Eosinophils % Eosinophils % (Manual) Basophils % Basophils % (Manual) Myelocytes % (Man) Promyelocytes % (Man) Blast Cells % (Manual) Nucleated RBC % Metamyelocytes Hypochromia Platelet Estimate Polychromasia Poikilocytosis Anisocytosis Microcytosis Macrocytosis Ovalocytes ESR PT with INR 13.60 H INR 1.15 H Sodium 140 Potassium 4.1 Chloride 107 Carbon Dioxide 29 Anion Gap 5 L BUN 16 Creatinine 0.8 Creat Clearance w eGFR 94.76 Random Glucose 108 H Calcium 9.0 Total Bilirubin 1.6 H AST 18 ALT 29 Alkaline Phosphatase 64 C-Reactive Protein Total Protein 6.9 Albumin 3.6 Blood Type Antibody Screen 11/11/18 11/11/18 11/11/18 02:43 08:15 08:15 WBC RBC Hgb Hct MCV MCH MCHC RDW Plt Count MPV Absolute Neuts (auto) Neutrophils % Neutrophils % (Manual) Band Neutrophils % Lymphocytes % Lymphocytes % (Manual) Monocytes % Monocytes % (Manual) Eosinophils % Eosinophils % (Manual) Basophils % Basophils % (Manual) Myelocytes % (Man) Promyelocytes % (Man) Blast Cells % (Manual) Nucleated RBC % Metamyelocytes Hypochromia Platelet Estimate Polychromasia Poikilocytosis Anisocytosis Microcytosis Macrocytosis Ovalocytes ESR PT with INR INR Sodium Potassium Chloride Carbon Dioxide Anion Gap BUN Creatinine Creat Clearance w eGFR Random Glucose Calcium Total Bilirubin AST ALT Alkaline Phosphatase C-Reactive Protein < 0.3 Total Protein Albumin Blood Type A POSITIVE A POSITIVE Antibody Screen Negative 11/11/18 11/11/18 08:15 08:15 WBC 10.5 H RBC 6.27 H Hgb 16.0 Hct 50.1 H MCV 79.9 L MCH 25.5 L MCHC 31.9 L RDW 15.1 Plt Count 178 MPV 8.9 Absolute Neuts (auto) 9.9 H Neutrophils % 94.8 H Neutrophils % (Manual) 90.8 H Band Neutrophils % 0.0 Lymphocytes % 3.7 L Lymphocytes % (Manual) 5.1 L Monocytes % 1.0 L Monocytes % (Manual) 3 L Eosinophils % 0.1 Eosinophils % (Manual) 0.0 Basophils % 0.4 Basophils % (Manual) 0.0 Myelocytes % (Man) 0 Promyelocytes % (Man) 0 Blast Cells % (Manual) 0 Nucleated RBC % 0 Metamyelocytes 0 Hypochromia 0 Platelet Estimate Normal Polychromasia 0 Poikilocytosis 1+ Anisocytosis 1+ Microcytosis 1+ Macrocytosis 0 Ovalocytes 1+ ESR 3 PT with INR INR Sodium Potassium Chloride Carbon Dioxide Anion Gap BUN Creatinine Creat Clearance w eGFR Random Glucose Calcium Total Bilirubin AST ALT Alkaline Phosphatase C-Reactive Protein Total Protein Albumin Blood Type Antibody Screen HOSPITAL COURSE: Date of Admission:11/11/18 Date of Discharge: 11/11/18 73 year old male with a history of hyperlipidemia, who presents after eating pizza, bottom lip swelling admitted to ICU for angioedema. Treated with IV steroids, Benadryl. Evaluated by ENT. Aminata for DC. Sent home on steroid taper. Zyrtec and to follow up with finance intern. Minutes to complete discharge: 30 Discharge Summary Reason For Visit: ANGIOEDEMA Condition: Stable - Instructions Diet, Activity, Other Instructions: Dr. Montiel, please continue the steroid taper and antihistamines as need. Please follow up with an finance intern as outpatient. Prednisone Taper: each pill is 10mg Day 1: 40mg (4pills) (start tomorrow) Day 2: 30mg (3pills) Day 3: 20mg (2pills) Day 4: 10mg (1pill) If you experience any worsening of symptoms including cough, felling of throat closing, lip swelling, or shortness of breath, please return to the emergency room. Referrals: Ashutosh Hoyt MD [Primary Care Provider] - Disposition: HOME - Home Medications Comprehensive Discharge Medication List: Ambulatory Orders Atorvastatin Ca [Lipitor] 10 mg PO DAILY 11/11/18 Cetirizine HCl [Zyrtec -] 10 mg PO DAILY #7 tablet 11/11/18 Prednisone 10 mg PO ASDIR 4 Days #10 tablet 11/11/18 This patient is new to me today: Yes Date on this admission: 11/11/18 Emergency Visit: Yes ED Registration Date: 11/11/18 Care time: The patient presented to the Emergency Department on the above date and was hospitalized for further evaluation of their emergent condition. Critical Care patient: Yes Total Critical Care Time (in minutes): 30 Critical Care Statement: The care of this patient involved high complexity decision making to prevent further life threatening deterioration of the patient 's condition and/or to evaluate & treat vital organ system(s) failure or risk of failure. - Discharge Referral Referred to [facility] No
[2018-11-11] MEDS ORDERED: CHLORHEXIDINE GLUCONATE 4% CLEANSER FOR DECOLONIZATION TP SCH (22:00)
== END 2018-11-11 14:25 | disposition home or self-care (01) | DRG 916 ==
LOC: JER 02:30 → JERBED 03:11 → JICU 05:48
PROVIDERS: ADMIT Internal Medicine; ATTEND Hospitalist
DX: T78.3XXA Angioneurotic edema, initial encounter (principal); I10 Essential (primary) hypertension; E78.5 Hyperlipidemia, unspecified; T78.1XXA Other adverse food reactions, not elsewhere classified, initial encounter
CPT/HCPCS: 36415; 71045-TC-FY; 80053; 85025; 85027; 85610; 85651; 86140; 86850; 86900; 86901; 93005; 93010; 99284-25

== ENCOUNTER 2019-05-09 08:06 | Day surgery (SDC) | payer OTHER, MEDICARE ==
[2019-05-06 15:15] VITALS: BMI 24.3
[2019-05-09 09:49] VITALS: TEMP 97.9
[2019-05-09 10:38] VITALS: BP 118/79; PULSE 82
--- NOTE | 2019-05-10 17:19 | PATH ---
Surgical Pathology Report Patient Name: YOBANI LEIJA [facility]. Rec. #: [id number] /Age/Gender: 1945 (Age: 73) / M Account: [id number] Location: [facility]-ENDOSCOPY Taken: 05/09/2019 Received: 05/09/2019 Reported: 05/10/2019 Physicians: Saad Pruett M.D. Specimen(s) Received BIOPSY CECAL POLYP Clinical History Screening Postoperative diagnosis: Colon polyp (cecal polyp), diverticulosis Final Diagnosis CECAL POLYP, BIOPSY: POLYPOID COLONIC MUCOSA WITH PROMINENT LYMPHOID AGGREGATE. Electronically Signed Anastasiya House M.D. Gross Description Received in formalin, labeled "cecal polyp" is a knapp, irregular portion of soft tissue measuring 0.2 cm. in greatest dimension. The specimen is submitted in toto in one cassette. MLSZ/05/09/2019 sanml/05/09/2019
== END 2019-05-09 11:00 | disposition home or self-care (01) ==
LOC: JASU-ENDO 08:06
PROVIDERS: ATTEND Internal Medicine Gastroenterology
PROC: 0DBH8ZX Excision of Cecum, Via Natural or Artificial Opening Endoscopic, Diagnostic (ICD-10-PCS; principal; 2019-05-09 09:00)
DX: Z12.11 Encounter for screening for malignant neoplasm of colon (principal); Z86.010 Personal history of colon polyps; D12.0 Benign neoplasm of cecum; K57.30 Diverticulosis of large intestine without perforation or abscess without bleeding
CPT/HCPCS: 88305-TC